=== PATIENT | male | born 1955 | race Caucasian/White ===

== ENCOUNTER 2021-03-20 06:17 | Day surgery (SDC) | payer MEDICARE, MEDICAID ==
[~2021-03-20] VITALS: Ht 182.9 cm; Wt 80.2 kg
[2021-03-20] VITALS (17 sets, daily range): BP systolic 105–127; BP diastolic 68–84
[2021-03-20] MEDS ORDERED: VITAMIN D (06:37)
[2021-03-20] MEDS ORDERED: ASPI-1265 PO (06:37)
[2021-03-20] MEDS ORDERED: albuterol (06:37)
[2021-03-20] MEDS ORDERED: nitroGLYCERIN 0.4mg SUBLingual tab SL PRN (06:50)
[2021-03-20] MEDS ORDERED: diphenhydrAMINE 25mg capsule PO PRN (06:50)
[2021-03-20] MEDS ORDERED: LORazepam 0.5 MG tablet PO PRN (06:50)
[2021-03-20] MEDS ORDERED: normal saline 1,000 ML IV SCH (06:50)
[2021-03-20] MEDS ORDERED: LIDOcaine 1% (10mg/ml)w/preservative injection 20ml MDV ONE (07:17)
[2021-03-20] MEDS ORDERED: nitroGLYCERIN-Tridil 50MG/D5W 250 ML IV ONE ×2 (07:17→08:45)
[2021-03-20] MEDS ORDERED: fentaNYL/PF 50MCG/1 ML 2ML syringe ONE (07:17)
[2021-03-20] MEDS ORDERED: midazolam 1 mg/ML 2ml injection ONE ×2 (07:17→08:14)
[2021-03-20] MEDS ORDERED: iohexol 350 MG/ML 50ML vial IV ONE (07:18)
[2021-03-20] MEDS ORDERED: iohexol 350MG/ML 100ml bottle IV ONE (07:18)
[2021-03-20] MEDS ORDERED: HYDROcodone/acetaminophen 5mg/325mg tablet PO PRN (09:00)
[2021-03-20] MEDS ORDERED: HYDROcodone/acetaminophen 10/325mg tab PO PRN (09:00)
== END 2021-03-20 16:00 | disposition home or self-care (01) ==
LOC: SSTAY O 06:17
PROVIDERS: ATTEND Internal Medicine Cardiovascular Disease
DX: R94.39 Abnormal result of other cardiovascular function study (principal); R07.89 Other chest pain; I25.10 Atherosclerotic heart disease of native coronary artery without angina pectoris; I25.2 Old myocardial infarction; J44.9 Chronic obstructive pulmonary disease, unspecified; Z79.82 Long term (current) use of aspirin; Z79.899 Other long term (current) drug therapy; F17.210 Nicotine dependence, cigarettes, uncomplicated; F12.90 Cannabis use, unspecified, uncomplicated; Z72.89 Other problems related to lifestyle
CPT/HCPCS: 93458; 99152; 99153; C1760; C1769; J1644; J2001; J2250; J3010; J7030; Q0163; Q9967; A4620; A6258; J3490